=== PATIENT | female | born 1980 | race Caucasian/White ===

== ENCOUNTER 2018-06-02 00:31 | Emergency (ER) | payer MEDICAID ==
[~2018-06-02] VITALS: Ht 165.1 cm; Wt 97.7 kg
[2018-06-02 02:29] LABS: ANION GAP 8 mmol/L (8-16); CALCIUM, TOTAL 8.5 mg/dL (8.8-10.5); CARBON DIOXIDE 27 mmol/L (22-29); CHLORIDE 104 mmol/L (98-107); CREATININE 0.65 mg/dL (0.60-1.30); GLOMERULAR FILTR. RATE CALC > 60 mL/min (>60); GLUCOSE,RANDOM 99 mg/dL (70-110); POTASSIUM 3.3 mmol/L (3.5-5.1); SODIUM SERUM 139 mmol/L (136-145); UREA NITROGEN, BLOOD 15 mg/dL (7-18)
[2018-06-02 02:39] LABS: BASOPHILS % (AUTO) 0.5 % (0.0-2.0); EOSINOPHILS % (AUTO) 0.8 % (1.0-6.0); HEMATOCRIT 38.9 % (36-46); HEMOGLOBIN 13.7 g/dL (12.0-16.0); LYMPHOCYTES # (AUTO) 3.2 K/uL (1.0-4.8); LYMPHOCYTES % (AUTO) 46.2 % (22.0-44.0); MEAN CORPUSCULAR HEMOGLOBIN 31.5 pg (26.0-34.0); MEAN CORPUSCULAR HGB CONC 35.3 G/dL (31.0-37.0); MEAN CORPUSCULAR VOLUME 89 fL (80-100); MONOCYTES # (AUTO) 0.6 K/uL (0.1-1.0); MONOCYTES % (AUTO) 8.5 % (2.0-9.0); PLATELET COUNT (AUTO) 180 K/uL (150-450); RED BLOOD CELL COUNT(AUTO) 4.36 MIL/uL (4.00-5.20); RED CELL DISTRIBUTION WIDTH 12.5 % (11.5-14.5)
[2018-06-02] MEDS ORDERED: POTASSIUM CHLORIDE 10% 40 MEQ/30 ML LIQUID UDCUP PO ONE (03:00)
[2018-06-02 03:05] VITALS: BP 121/77
== END 2018-06-02 03:42 | disposition home or self-care (01) ==
LOC: EMS 00:32
DX: F41.9 Anxiety disorder, unspecified (principal); E87.6 Hypokalemia
CPT/HCPCS: 93005; 99285

== ENCOUNTER 2024-07-05 20:38 | Emergency (ER) | payer MEDICAID ==
[~2024-07-05] VITALS: Ht 154.9 cm; Wt 100.0 kg
[2024-07-05 20:42] VITALS: RESP 20; TEMP 98.8; O2SAT 94
[2024-07-05] MEDS ORDERED: DiphenhydrAMINE HCL 50 MG/ML VIAL IVP ONE (20:45)
[2024-07-05] MEDS ORDERED: MethylPREDNISolone SOD SUCC 125 MG/2 ML VIAL IVP ONE (20:45)
[2024-07-05] MEDS ORDERED: EPINEPHrine 1:1,000 [1 MG/ML] VIAL SQ ONE (20:45)
[2024-07-05 20:46] VITALS: BP 152/100; PULSE 86
[2024-07-05] MEDS: EPINEPHrine 1:1,000 [1 MG/ML] VIAL SQ ONE (20:46)
[2024-07-05] MEDS: MethylPREDNISolone SOD SUCC 125 MG/2 ML VIAL IVP ONE (20:46)
[2024-07-05] MEDS: DiphenhydrAMINE HCL 50 MG/ML VIAL IVP ONE (20:47)
[2024-07-05] MEDS ORDERED: PRED-554 PO (21:46)
[2024-07-05] MEDS ORDERED: DIPH50CA37 PO (21:46)
[2024-07-05] MEDS: DiphenhydrAMINE HCL 25 MG CAPSULE PO ONE (21:49)
== END 2024-07-05 22:00 | disposition home or self-care (01) ==
LOC: EMS 20:38
DX: L50.0 Allergic urticaria (principal); R21 Rash and other nonspecific skin eruption; R06.00 Dyspnea, unspecified; Z91.013 Allergy to seafood
CPT/HCPCS: 99284; 96374; 96375; 96372; J1200; J0171; J2919